=== PATIENT | female | born 1970 | race Caucasian/White ===

== ENCOUNTER 2024-05-21 01:57 | Emergency (ER) | payer MEDICAID ==
[~2024-05-21] VITALS: Ht 167.6 cm; Wt 88.9 kg
[2024-05-21 02:42] VITALS: BP 146/89; PULSE 72; RESP 18; TEMP 98.5; O2SAT 98
[2024-05-21 03:39] LABS: BASOPHILS % 0.3 % (0.0-2.0); HEMATOCRIT. 42.3 % (36.0-48.0); HEMOGLOBIN. 13.9 g/dL (12.0-16.0); LYMPHOCYTES % 19.8 % (20.0-50.0); MEAN CORPUSCULAR HEMOGLOBIN 27.9 pg (28.0-32.0); MEAN CORPUSCULAR HGB CONC 32.9 g/dL (31.0-37.0); MEAN CORPUSCULAR VOLUME 84.8 fL (81.0-99.0); MEAN PLATELET VOLUME 10.6 fl (7.4-10.4); MONOCYTES % 8.6 % (2.0-8.0); NEUTROPHILS % 71.3 % (40.0-76.0); PLATELET 301 x1000/uL (130-400); RED BLOOD CELL COUNT 4.99 mill/uL (4.2-5.4); RED CELL DISTRIBUTION WIDTH 15.3 % (11.6-14.6); WHITE BLOOD COUNT 14.7 x1000/uL (4.5-11.0)
[2024-05-21 03:50] LABS: CHLORIDE 109 mEq/L (98-107); POTASSIUM 3.8 mEq/L (3.5-5.1); SODIUM 140 mEq/L (136-145)
[2024-05-21 03:51] LABS: CALCIUM 9.1 mg/dL (8.7-10.4); CARBON DIOXIDE 22 mEq/L (21-32)
[2024-05-21 03:56] LABS: CREATININE 1.1 mg/dL (0.6-1.0); GLUCOSE 125 mg/dL (70-105); UREA NITROGEN BLOOD 18 mg/dL (9-23)
[2024-05-21 03:58] LABS: ALANINE AMINOTRANSFERASE 18 IU/L (10-49); ALBUMIN 4.7 g/dL (3.2-4.8); ASPARTATE AMINOTRANSFERASE 14 IU/L (<34); BILIRUBIN TOTAL 0.6 mg/dL (0.1-1.0); PROTEIN TOTAL 7.9 g/dL (6.0-8.3)
[2024-05-21 04:13] LABS: PROTHROMBIN TIME 10.8 sec (9.6-11.0)
[2024-05-21 04:25] LABS: CLARITY URINE CLEAR (CLEAR); COLOR URINE YELLOW (YELLOW); GLUCOSE URINE NEGATIVE (NEGATIVE); KETONES URINE NEGATIVE (NEGATIVE); LEUKOCYTE ESTERASE URINE TRACE (NEGATIVE); NITRITE URINE NEGATIVE (NEGATIVE); OCCULT BLOOD URINE 1+ (NEGATIVE); PH URINE 5.5 (4.5-8.0); PROTEIN URINE NEGATIVE (NEGATIVE); SPECIFIC GRAVITY URINE 1.018 (1.005-1.030); UROBILINOGEN URINE 0.2 E.U./dL (0.2-1.0)
[2024-05-21] MEDS ORDERED: ONDANSETRON 4MG ODT PO ONE (05:45)
[2024-05-21] MEDS ORDERED: KETOROLAC 30MG/ML VIAL IM ONE (05:45)
[2024-05-21] MEDS ORDERED: SODIUM CHLORIDE 0.9% 1,000 ML IV ONE ×2 (06:00→06:30)
[2024-05-21] MEDS ORDERED: ONDANSETRON HCL 4MG/2ML INJ IV ONE (06:45)
[2024-05-21 07:13] LABS: SQUAMOUS EPITHELIAL CELL URINE FEW /lpf (RARE/1+)
[2024-05-21 07:15] LABS: BACTERIA URINE NONE SEEN
[2024-05-21] MEDS ORDERED: IBUP-2029 MT (07:33)
== END 2024-05-21 07:10 | disposition home or self-care (01) ==
LOC: ER 01:57
DX: N20.0 Calculus of kidney (principal); N17.9 Acute kidney failure, unspecified; Z88.0 Allergy status to penicillin
CPT/HCPCS: 99284; 74176; 80053; 81003; 83605; 83690; 85025; 85610; 36415; J7030; J1885; J2405